=== PATIENT | male | born 1970 | race Two or more races ===

== ENCOUNTER 2017-12-27 11:25 | Emergency (ER) | payer OTHER ==
[~2017-12-27] VITALS: Ht 167.6 cm; Wt 83.0 kg
[2017-12-27 11:59] LABS: BASOPHILS # (AUTO) 0.03 x10^3/uL (0-0.1); BASOPHILS % (AUTO) 1 % (0-1); EOSINOPHILS # (AUTO) 0.05 x10^3/uL (0-0.4); EOSINOPHILS % (AUTO) 1 % (1-7); LYMPHOCYTES # (AUTO) 0.88 x10^3/uL (1-3.4); LYMPHOCYTES % (AUTO) 15 % (22-44); MD NO; MEAN CORPUSCULAR HEMOGLOBIN 31.1 pg (27.5-34.5); MEAN CORPUSCULAR HGB CONC 34.4 g/dL (33.2-36.2); MEAN CORPUSCULAR VOLUME 90.4 fL (81-97); MEAN PLATELET VOLUME 7.8 fL (7.4-10.4); MONOCYTES # (AUTO) 0.39 x10^3/uL (0.2-0.8); MONOCYTES % (AUTO) 7 % (2-9); NEUTROPHILS # (AUTO) 4.66 x10^3/uL (1.8-6.8); NEUTROPHILS % (AUTO) 78 % (42-75); PLATELET COUNT 238 x10^3/uL (130-400); RED BLOOD COUNT 5.74 x10^6/uL (4.38-5.82); RED CELL DISTRIBUTION WIDTH 13.2 % (9.4-14.8)
[2017-12-27] MEDS ORDERED: AMLO10TA2 PO (12:00)
[2017-12-27] MEDS ORDERED: KETOROLAC 30 MG/1 ML IVPush ONE (12:00)
[2017-12-27] MEDS ORDERED: NAPR-685 PO (12:01)
[2017-12-27] MEDS ORDERED: HYDR-3240 PO (12:01)
[2017-12-27 12:12] LABS: ANION GAP 7 mmol/L (5-15); CALCIUM 8.6 mg/dL (8.5-10.1); CHLORIDE 108 mmol/L (98-107)
[2017-12-27 12:13] LABS: CREATININE 0.92 mg/dL (0.7-1.3)
[2017-12-27] MEDS ORDERED: KETOROLAC 30 MG/1 ML ONE (12:50)
[2017-12-27 12:55] VITALS: BP 149/106
[2017-12-27 12:59] LABS: TROPONIN I < 0.015 ng/mL (0.000-0.045)
== END 2017-12-27 13:28 | disposition home or self-care (01) ==
LOC: ED 13:20
DX: S20.02XA Contusion of left breast, initial encounter (principal); X58.XXXA Exposure to other specified factors, initial encounter; Y93.89 Activity, other specified; Y92.89 Other specified places as the place of occurrence of the external cause; Y99.8 Other external cause status; I10 Essential (primary) hypertension; S20.212A Contusion of left front wall of thorax, initial encounter
CPT/HCPCS: 36415; 71250; 80048; 84484; 85025; 93005; 96374; 99285; J1885